=== PATIENT | male | born 1975 | race Caucasian/White ===

== ENCOUNTER → 2018-06-09 11:41 | Outpatient (CLI) | payer BC, SELFPAY ==
[2018-06-09 11:45] LABS: Adenovirus,PCR Not Detected (NotDetected); Bordetella Pertussis Not Detected (NotDetected); Chlamydophila Pneumoniae, PCR Not Detected (NotDetected); Coronavirus 229E Not Detected (NotDetected); Coronavirus NL63 Not Detected (NotDetected); Coronavirus OC43 Not Detected (NotDetected); Coronovirus HKU1,PCR Not Detected (NotDetected); Human Metapneumovirus Not Detected (NotDetected); Influenza A, PCR Not Detected (NotDetected); Influenza AH1, 2009 Not Detected (NotDetected); Influenza AH1, PCR Not Detected (NotDetected); Influenza AH3,PCR Not Detected (NotDetected); Influenza B, PCR Not Detected (NotDetected); Mycoplasma Pneumoniae, PCR Not Detected (NotDetected); Parainfluenza 1, PCR Not Detected (NotDetected); Parainfluenza 2, PCR Not Detected (NotDetected); Parainfluenza 3, PCR Not Detected (NotDetected); Parainfluenza 4, PCR Not Detected (NotDetected); Respiratory Syncytial Virus Not Detected (NotDetected); Rhinovirus/Enterovirus Not Detected (NotDetected)
== END ==
PROVIDERS: PCP Physician Assistant; Visit Provider Physician Assistant
DX: R09.89 Other specified symptoms and signs involving the circulatory and respiratory systems (principal); R05 Cough; R52 Pain, unspecified
CPT/HCPCS: 87486; 87581; 87633; 87798

== ENCOUNTER → 2020-02-03 15:53 | Outpatient (CLI) | payer BC, SELFPAY | PROVIDERS: PCP Family Medicine; Visit Provider Family Medicine | DX: Z20.828 Contact with and (suspected) exposure to other viral communicable diseases (principal) | CPT/HCPCS: U0003 ==

== ENCOUNTER → 2020-09-02 14:38 | Outpatient (CLI) | payer BC, SELFPAY ==
--- NOTE | 2020-09-02 14:44 | XR_ITS ---
PROCEDURE: XR KNEE RT 3V CLINICAL INDICATION: RT MEDIAL KNEE PAIN, INJURY OF RT KNEE COMPARISON: CR [id number] KNEE-4 OR 5 VIEWS-RT from 02/17/2016 FINDINGS: No fracture or dislocation. No lytic or blastic change. There is normal mineralization. There are minimal osteoarthritic changes of the medial compartment Other findings:None. IMPRESSION: Mild osteoarthritic change medial compartment Dictated by: Chung Nielsen MD 09/02/2020 15:41 Chung Nielsen MD in [place] 09/02/2020 15:41
== END ==
PROVIDERS: PCP Nurse Practitioner Family; Visit Provider Family Medicine
DX: M25.561 Pain in right knee (principal); S89.91XA Unspecified injury of right lower leg, initial encounter
CPT/HCPCS: 73562

== ENCOUNTER 2024-10-13 09:45 | Outpatient (CLI) | payer BC, SELFPAY ==
--- NOTE | 2024-10-13 09:50 | CT_ITS ---
FINAL REPORT TECHNIQUE: After the administration of intravenous contrast, axial images were obtained through the abdomen and pelvis by computed tomography. The study was performed with techniques to keep radiation dose as low as reasonably achievable, (ALARA). Individual dose reduction techniques using automated exposure control or adjustment of mA and/or kV according to the patient's size were employed. CLINICAL HISTORY: ABD PAIN/ GAS PAIN COMPARISON: None FINDINGS: Abdomen: The lung bases are clear. The liver parenchyma is homogeneous. The gallbladder is present. The spleen, adrenals and kidneys appear unremarkable. There is extensive inflammatory reaction around the head of the pancreas, consistent with pancreatitis. There are several small adjacent lymph nodes, favor reactive. The aorta is normal in caliber. There is no free fluid or adenopathy. Pelvis: The appendix is not identified. The urinary bladder is decompressed. There is no free fluid or adenopathy. IMPRESSION: Extensive inflammatory reaction around the head of the pancreas consistent with pancreatitis. Recommend correlation with laboratory values. Reviewed, Interpreted and Dictated by Merritt Velarde MD Transcribed by Domitila Devi Authenticated and [facility]
--- NOTE | 2024-10-13 09:50 | US_ITS ---
FINAL REPORT CLINICAL HISTORY: ABD PAIN -- GAS PAIN COMPARISON: None FINDINGS: ULTRASOUND RUQ Sonographic images of the right upper quadrant were obtained. The pancreas is obscured. There is fatty infiltration of the liver. The gallbladder appears normal without evidence of gallstones. There is an echogenic focus projecting from the gallbladder wall measuring 4 mm in size, likely a gallbladder polyp. There is no evidence of biliary ductal dilatation.The common duct measures 5 mm. Limited images of the right kidney are unremarkable. IMPRESSION: Fatty infiltration of the liver, with a 4 mm probable gallbladder polyp. The pancreas is obscured. Reviewed, Interpreted and Dictated by Merritt Velarde MD Transcribed by Domitila Devi Authenticated and [facility]
[2024-10-13] MEDS: SODIUM CHLORIDE 0.9% 10ML SYR (RAD ONLY) 10 ML IV (10:05)
[2024-10-13] MEDS: IOPAMIDOL-370 (76%);100ML BOTTLE 75 ML IV (10:05)
== END 2024-10-13 23:59 | disposition home or self-care (01) ==
LOC: RAD 09:46
PROVIDERS: PCP Nurse Practitioner; Visit Provider Nurse Practitioner
DX: R10.9 Unspecified abdominal pain (principal)
CPT/HCPCS: 74177; 76705; Q9967